=== PATIENT | male | born 1995 | race Caucasian/White ===

== ENCOUNTER 2023-10-19 17:41 | Emergency (ER) | payer MEDICAID ==
[~2023-10-19] VITALS: Ht 162.6 cm; Wt 81.7 kg
[2023-10-19 17:43] VITALS: BP 142/70; PULSE 65; RESP 14; TEMP 98.3; O2SAT 100
[2023-10-19] MEDS: IBUPROFEN 800 MG TAB PO ONE (18:10)
[2023-10-19] MEDS ORDERED: IBUP-2218 PO (18:12)
[2023-10-19 18:50] VITALS: BP 135/82; PULSE 65; RESP 14; TEMP 98.3; O2SAT 100
== END 2023-10-19 18:50 | disposition home or self-care (01) ==
LOC: MED 17:41
DX: R07.89 Other chest pain (principal); M25.512 Pain in left shoulder; M25.511 Pain in right shoulder; M25.521 Pain in right elbow; M25.522 Pain in left elbow; I10 Essential (primary) hypertension; J45.909 Unspecified asthma, uncomplicated; Z79.899 Other long term (current) drug therapy; Z88.0 Allergy status to penicillin
CPT/HCPCS: 71045; 73030; 73080; 99284

== ENCOUNTER 2023-11-05 20:25 | Emergency (ER) | payer MEDICAID ==
[~2023-11-05] VITALS: Ht 162.6 cm; Wt 81.6 kg
[~2023-11-05 20:25] MED LIST: IBUP-2218 PO
[2023-11-05 20:37] VITALS: BP 129/69; PULSE 57; RESP 18; TEMP 98.3; O2SAT 100
[2023-11-05] MEDS ORDERED: IBUP-2213 PO (22:04)
[2023-11-05] MEDS: IBUPROFEN 600 MG TAB PO ONE (22:13)
[2023-11-05 22:35] VITALS: BP 120/79; PULSE 65; RESP 18; TEMP 98.3; O2SAT 100
== END 2023-11-05 22:35 | disposition home or self-care (01) ==
LOC: MED 20:25
DX: S80.01XA Contusion of right knee, initial encounter (principal); J45.909 Unspecified asthma, uncomplicated; I10 Essential (primary) hypertension; Z79.899 Other long term (current) drug therapy; W18.30XA Fall on same level, unspecified, initial encounter; Y93.89 Activity, other specified; Y92.89 Other specified places as the place of occurrence of the external cause; Y99.8 Other external cause status
CPT/HCPCS: 73562; 99283